=== PATIENT | female | born 1990 | race African-American/Black ===

== ENCOUNTER 2022-02-18 07:17 | Emergency (ER) | payer MEDICAID ==
[2022-02-18 08:52] LABS: CORONAVIRUS 2019 SARS-COV-2 NEGATIVE (NEGATIVE); INFLUENZA A NAA NEGATIVE (NEGATIVE)
[2022-02-18] MEDS ORDERED: AMOXICILLIN500 MG PO (09:49)
[2022-02-18] MEDS ORDERED: ONDANSETRON ODT4 MG PO (09:49)
== END 2022-02-18 10:04 | disposition home or self-care (01) ==
LOC: FER 07:17
PROVIDERS: Emergency Medicine
DX: B34.9 Viral infection, unspecified (principal); K05.10 Chronic gingivitis, plaque induced; K05.219 Aggressive periodontitis, localized, unspecified severity; K03.81 Cracked tooth; R19.7 Diarrhea, unspecified; Z20.822 Contact with and (suspected) exposure to COVID-19
CPT/HCPCS: J2405; U0002